=== PATIENT | female | born 1930 | race Caucasian/White ===

== ENCOUNTER 2016-12-22 11:40 | Observation (INO) | payer MEDICARE, BC ==
[2016-12-17 13:22] LABS: HEMATOCRIT 44.3 % (36.0-48.0); HEMOGLOBIN 15.2 g/dL (12.0-16.0)
[2016-12-17 13:38] LABS: CHLORIDE, SERUM 109 MMOL/L (96-112); CO2 (CARBON DIOXIDE) 27 MMOL/L (24-34); CREATININE 1.06 MG/DL (0.55-1.02); GFR AFRICAN AMERICAN 54 ML/MIN (>=60); GFR NON AFRICAN AMERICAN 47 ML/MIN (>=60); SODIUM, SERUM 144 MMOL/L (135-148)
[2016-12-17 13:41] LABS: BUN (BLOOD UREA NITROGEN) 20 MG/DL (6-23); GLUCOSE, SERUM 106 MG/DL (60-99); POTASSIUM, SERUM 5.6 MMOL/L (3.5-5.3)
--- NOTE | ~2016-12-22 | OP ---
Record Of Operation [facility] [address] [place]. [address] NAME: CORNELIO THOMPSON : [birth year] STATUS : ADM IN PAT#: [id number] AGE: 86 ADM/REG DATE : 12/22/16 MR#: [id number] REPORT SERV DATE: 12/22/16 DICTATED BY: ANNEL VILLALOBOS DATE: 12/22/16 REPORT STATUS : Draft TRANSCRIBED BY: LISA DATE: 12/22/16 DATE OF PROCEDURE: 12/22/2016 PREPROCEDURE DIAGNOSES: Rectocele with obstructive defecation. POSTPROCEDURE DIAGNOSES: Rectocele with obstructive defecation PROCEDURE: Transvaginal rectocele repair. No mesh. DAMPER MAKER: Jen. DESCRIPTION OF PROCEDURE: The patient was taken to the operating room, induced under general anesthesia, placed into lithotomy, prepped and draped in the usual sterile fashion. Local anesthetic was injected at the level of the introitus. The introitus was so small, it was impossible to place any vaginal retractor. For this reason, it was opened posteriorly through scar tissue only, there was no muscle involved in order to fit a widely renal vein retractor anteriorly over the bladder and elevate the vagina in order to perform the repair. The patient had a previous repair of episiotomy which had significant scar tissue for about 2 cm proximal in the rectum. It Looked very much like a previous rectocele repair. Dr. Perla placed her hand in an 8 glove, dipped in Betadine paint in [place] under the green sheet primary to do a rectal exam. It was noted that the rectocele she complained of was above the level of the scar tissue. The glove was discarded. Local anesthetic was injected into the posterior vaginal mucosa. Incision was made from the apex to this area of scar tissue at the posterior introitus. Great care was taken in order to try to perform dissection. The patient had significant scar tissue, was very poor quality tissue, there were not good tissue planes, great care was taken to avoid any injury to the rectum, these planes were opened as far to the apex as possible being limited by the overall aperture of the vagina. Once this was accomplished, a vagutk-aj-chius 2-0 Vicryl stitches were placed in order to bring the lateral vaginal tissue anteriorly into the wound and create a new rectovaginal septum. This was tested twice using an [address] Perla's right hand, dipped in Betadine paint. There appeared to be good thick rectovaginal septum recreated. No evidence of stitches intrarectally and it was a single-layer repair, there was no room for second layer. The vaginal mucosa was trimmed and passed off the table and sent to pathology and then the mucosa was closed in a running locking fashion from apex to introitus. The wound was irrigated. There was good hemostasis. There was minimal blood loss. The vagina was packed using Premarin soaked vaginal pack, and the patient already had a Trejo catheter in place. She was cleaned and dried followed by two 4x4s, peripad, and mesh panties. She tolerated the procedure well. GILMER/LISA Annel Villalobos M.D. Record Of Operation [address] [address] NAME: CORNELIO THOMPSON : [birth year] STATUS : ADM IN PAT#: [id number] AGE: 86 ADM/REG DATE : 12/22/16 MR#: [id number] REPORT SERV DATE: 12/22/16 DICTATED BY: ANNEL VILLALOBOS DATE: 12/22/16 REPORT STATUS : Draft TRANSCRIBED BY: LISA DATE: 12/22/16 / [id number] CC: Monse Hendricks M.D.
--- NOTE | ~2016-12-22 | CN ---
Consultation Report [facility] [address] [place]. [address] NAME: CORNELIO THOMPSON : [birth year] STATUS : ADM IN PAT#: [id number] AGE: 86 ADM/REG DATE : 12/22/16 MR#: [id number] REPORT SERV DATE: 12/23/16 DICTATED BY: SHELLI SAMAYOA DATE: 12/23/16 REPORT STATUS : Draft TRANSCRIBED BY: MODL DATE: 12/23/16 MEDICAL CONSULTATION DATE OF CONSULTATION: 12/23/2016 IDENTIFYING DATA: An 86-year-old white female, whose PCP is Dr. Derek Hatch, mechanical insulator Dr. Benedict Baca, attending physician Dr. Stefanie Villalobos, Colorectal Surgery. REASON FOR CONSULTATION: Nonsustained ventricular tachycardia. HISTORY OF PRESENT ILLNESS: This patient has a history of rectal incontinence with a rectocele and underwent surgical repair with transvaginal approach on 12/22/[address] Villalobos. This morning, about 05:15 a.m., she was noted to have a 7-beat run of nonsustained ventricular tachycardia. The patient states, she was not aware of it. No chest pain. No shortness of breath. No palpitations. Did not feel lightheaded. Review of the records from [facility] office note dated 09/30/2016 reveals that "she was noted on pacer interrogation to have nonsustained ventricular tachycardia." Because of this, Cardiology had sent the patient for an echocardiogram, this was done on 09/16/2016. Apparently, the pacer interrogation was back in 2015. On the echo 09/16/2016, left ventricular ejection fraction 55%, mild diastolic dysfunction, eiyo-vi-jcpynzxu mitral tricuspid, and aortic insufficiency along with left atrial enlargement of 4.18 cm. The patient's notes from [facility] indicate that she has been known to have these episodes in a non prolonged fashion ongoing in the past. They did not recommend any change in her therapy. The patient had again no chest pain, no shortness of breath, no palpitations, no syncope. She is not even aware of them. The shift mechanic reportedly put the patient on oxygen last night because her O2 saturation reportedly dropped to 86%. I did not see documentation of this. It was just passed on to the day nurse. The patient denies any shortness of breath. REVIEW OF SYSTEMS: She states, she had a little nausea when she had her prep for the bowel surgery. She has had occasional diarrhea in the past. She has had occasional ankle edema. She denies chest pain, shortness of breath, fever, cough, nasal congestion, sore throat, abdominal pain, vomiting, rectal bleeding, melena, dysuria, urinary hesitancy, tick bites, falls or rash. PAST MEDICAL HISTORY: She claims an allergy to codeine. She denies any history of diabetes, asthma, COPD, stroke, seizure, peptic ulcer, biliary tract disease, chronic kidney disease, kidney stones, cancer or sleep apnea. Consultation Report [address] [place]. [address] NAME: CORNELIO THOMPSON : [birth year] STATUS : ADM IN [facility]#: [id number] AGE: 86 ADM/REG DATE : 12/22/16 MR#: [id number] REPORT SERV DATE: 12/23/16 DICTATED BY: SHELLI SAMAYOA DATE: 12/23/16 REPORT STATUS : Draft TRANSCRIBED BY: LISA DATE: 12/23/16 She has had chronic atrial fibrillation with sick sinus syndrome and has a pacemaker. She has hypertension and hyperlipidemia. She has had a L2 compression fracture with osteoporosis. She also has a history of osteoarthritis. She has had headaches in the past and she had diverticulitis in 2006. She has hypothyroidism. 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 HOME MEDICATIONS: Norvasc 5 mg daily, Os-Agustín 500 mg b.i.d., levothyroxine 75 mcg daily, Toprol-XL 50 mg daily, Coumadin 5.5 mg every evening. PAST SURGICAL HISTORY: She had the rectocele repair from yesterday, appendectomy, cataract removal, foot surgery, TAHBSO, pacemaker implantation, tonsillectomy, and anoplasty, right parathyroid resection, right adrenal resection, benign breast biopsies. SOCIAL HISTORY: She has no tobacco or alcohol intake history. She has worked as a missionary. She walks without an assistive device. FAMILY HISTORY: Mother with hypertension and some type of chest cancer. Father of a heart attack at age 56. Siblings with heart disease and diabetes. DIAGNOSTIC DATA: Sodium 139, potassium 3.5, chloride 105, CO2 is 27, BUN 11, creatinine 0.8, glucose 104, calcium 7.6, magnesium 2. Troponin this morning is less than 0.02. White count is 7, hemoglobin 12, platelets are 125,000. Protime 14.6, INR 1.2. EKG done preop on 12/17/2016 at 1028 hours reveals atrial paced rhythm. Otherwise, unremarkable EKG. Telemetry strip from this morning at 0515 hours revealed atrial paced rhythm and then a 7- beat run of wide-complex tachycardia. PHYSICAL EXAMINATION: VITAL SIGNS: Temp is 97.9, pulse 70, respirations 16, blood pressure 99/53, O2 saturation is 96% on 2 L. BMI is 21.7. GENERAL: Well-developed female, who appears in no acute distress. HEENT: Head is atraumatic. Pupils are equal, round, and reactive to light. Extraocular motions are intact. No scleral icterus noted. Ears, externally unremarkable. Mildly diminished hearing bilaterally. No inflammatory changes noted externally. Nose, noninflamed externally. Septum midline. Nares patent. Mouth, moist. Good gag. No redness of the throat, gums, or lips. NECK: Supple. No lymph node or thyroid enlargement. The carotids have good pulses. No bruits. LUNGS: Clear. Good air flow. No wheezes. No rhonchi. HEART: Regular rate and rhythm without murmur, gallop, click, or rub. ABDOMEN: Bowel sounds positive. Soft, nondistended, nontender. No masses. No organomegaly. EXTREMITIES: Warm. Good pulses. No clubbing, no cyanosis, no edema. No actively inflamed skin or joints. Consultation Report [place] [id number] [facility] [place]. [address] NAME: CORNELIO THOMPSON : [birth year] STATUS : ADM IN [facility]#: [id number] AGE: 86 ADM/REG DATE : 12/22/16 MR#: [id number] REPORT SERV DATE: 12/23/16 DICTATED BY: SHELLI SAMAYOA DATE: 12/23/16 REPORT STATUS : Draft TRANSCRIBED BY: MODTyree DATE: 12/23/16 NEUROLOGIC: She is alert. She is oriented. She is cooperative. Her motor strength is 3/5 in all four extremities. No Babinski. No clonus noted. She has very poor vision in both eyes bilaterally. Cranial nerves 2 through 12 are otherwise only noted to show mild diminished hearing. No Babinski. No clonus noted. ASSESSMENT: 1. Episode of 7-beat nonsustained ventricular tachycardia, asymptomatic in a patient with this known pattern in the past with a normal ejection fraction on her echocardiogram in 08/2016, and with interrogation of her pacemaker over the phone by Cardiology within the month that was unremarkable per her report. 2. Transient mild hypoxia reported last night during sleep. This most likely represents sedation as she states she was very sleepy from the medicine she was given, less likely would be obstructive sleep apnea. 3. Chronic atrial fibrillation with pacemaker. 4. Mild intermittent thrombocytopenia. 5. Potassium level of 5. 6. Mildly low blood pressure. PLAN: 1. We will replace her potassium by mouth now. 2. Hold her Norvasc for blood pressure is low end of normal at this time until her PCP reassesses this. 3. Check room air and walking O2 saturation. 4. Okay for home with outpatient followup from the Internal Medicine perspective. RSG/JESSICAL Shelli Samayoa M.D. / [id number] CC: Monse Hendricks M.D. Mark Thel, M.D.
--- NOTE | ~2016-12-22 | HP ---
History And Physical [address] [place]. [address] NAME: CORNELIO THOMPSON : [birth year] STATUS : ADM IN [facility]#: [id number] AGE: 86 ADM/REG DATE : 12/22/16 MR#: [id number] REPORT SERV DATE: 12/22/16 DICTATED BY: ANNEL VILLALOBOS DATE: 12/22/16 REPORT STATUS : Draft TRANSCRIBED BY: LISA DATE: 12/22/16 DATE OF ADMISSION: 12/22/2016 REASON FOR ADMISSION: Transvaginal rectocele repair without mesh. PAST MEDICAL HISTORY: Fecal incontinence, lichen sclerosus, obstructive defecation, rectocele, atrial fibrillation, headaches, hyperglycemia, hypertension, hypertriglyceridemia, hypothyroidism, neck injury, and osteoarthritis. PAST SURGICAL HISTORY: Appendectomy, cataract surgery, foot surgery, hysterectomy, oophorectomy, pacemaker implant, tonsillectomy, and hemorrhoidectomy. SOCIAL HISTORY: She does not smoke or drink. She is . FAMILY HISTORY: Significant for diabetes and myocardial infarction. ALLERGIES: CODEINE. MEDICATIONS: Probiotic, Jantoven, Dilaudid, amlodipine, calcium, levothyroxine, Toprol, clonazepam. PHYSICAL EXAMINATION: VITAL SIGNS: 92, 150/87, BMI of 19. GENERAL: Alert, elderly white female, in no acute distress. HEENT: Normocephalic, atraumatic. EOMI. PERRLA. Oropharynx is clear. NECK: Supple. No lymphadenopathy. Clear to auscultation bilaterally. HEART: Regular rate and rhythm. ABDOMEN: Soft, with appropriate surgical scars. GENITALIA: Vaginal introitus is very narrowed with significant scarring posteriorly. NEUROLOGIC: Moves all extremities well. Cranial nerves 2 through 12 are intact. SKIN: No rashes. ASSESSMENT: Rectocele. PLAN: Plan is for transvaginal rectocele repair. No mesh. I have discussed risks, benefits, and alternatives. She understands and is willing to proceed. GILMER/LISA Annel Villalobos M.D. / [id number] History And Physical [address] [place]. [address] NAME: CORNELIO THOMPSON : [birth year] STATUS : ADM IN PAT#: [id number] AGE: 86 ADM/REG DATE : 12/22/16 MR#: [id number] REPORT SERV DATE: 12/22/16 DICTATED BY: ANNEL VILLALOBOS DATE: 12/22/16 REPORT STATUS : Draft TRANSCRIBED BY: LISA DATE: 12/22/16 CC: Monse Hendricks M.D.
[~2016-12-22 11:40] MED LIST: ASAB PO; B/P MED; C1 PO; C5 PO; CENTRUM TAB1 TAB PO; JANTOVEN5 MG PO; NORV5 PO; OS500+D PO; RECLAST IV; SYN075 PO; TOPXL50 PO; TRICOR145 PO
[2016-12-22 12:36] LABS: PROTIME (NOT ORD) 13.3 SEC (12.0-14.5)
[2016-12-22 12:39] LABS: BUN (BLOOD UREA NITROGEN) 13 MG/DL (6-23); CALCIUM, SERUM 8.7 MG/DL (8.5-10.4); CHLORIDE, SERUM 105 MMOL/L (96-112); CO2 (CARBON DIOXIDE) 27 MMOL/L (24-34); GFR AFRICAN AMERICAN 76 ML/MIN (>=60); GFR NON AFRICAN AMERICAN 66 ML/MIN (>=60); GLUCOSE, SERUM 93 MG/DL (60-99); POTASSIUM, SERUM 4.6 MMOL/L (3.5-5.3); SODIUM, SERUM 143 MMOL/L (135-148)
[2016-12-22 15:33] LABS: HEMOGLOBIN 13.7 g/dL (12.0-16.0)
[2016-12-23 04:20] LABS: BASOPHILS 0.1 %; BASOPHILS ABSOLUTE 0.01 10/3/uL (0.0-0.16); EOSINOPHILS 1.6 %; EOSINOPHILS ABSOLUTE 0.11 10/3/uL (0.0-0.53); HEMATOCRIT 35.3 % (36.0-48.0); IMMATURE GRANULOCYTES 0.3 %; IMMATURE GRANULOCYTES ABSOLUTE 0.02 10/3/uL (0.0-0.11); LYMPHOCYTES 8.8 %; LYMPHOCYTES ABSOLUTE 0.61 10/3/uL (0.67-4.30); MEAN CORPUSCULAR HEMOGLOB 31.8 pg (26.0-34.0); MEAN CORPUSCULAR VOLUME 93.6 fL (80-100); MEAN PLATELET VOLUME 8.6 fL (9.2-13.0); MONOCYTES 6.6 %; MONOCYTES ABSOLUTE 0.46 10/3/uL (0.21-1.20); NEUTROPHILS 82.6 %; NEUTROPHILS ABSOLUTE 5.76 10/3/uL (2.02-8.40)
[2016-12-23 04:21] LABS: INTERNATIONAL NORMAL RATI 1.2 UNITS (-); PROTIME (NOT ORD) 14.6 SEC (12.0-14.5)
[2016-12-23 04:22] LABS: MANUAL DIFF NO %; PLATELET COUNT 125 10/3/uL (150-400); RED CELL COUNT 3.77 10/6/uL (4.0-5.6)
[2016-12-23 04:33] LABS: BUN (BLOOD UREA NITROGEN) 11 MG/DL (6-23); CHLORIDE, SERUM 105 MMOL/L (96-112); CO2 (CARBON DIOXIDE) 27 MMOL/L (24-34); GFR AFRICAN AMERICAN 76 ML/MIN (>=60); GFR NON AFRICAN AMERICAN 66 ML/MIN (>=60); GLUCOSE, SERUM 104 MG/DL (60-99); SODIUM, SERUM 139 MMOL/L (135-148)
[2016-12-23 04:42] LABS: CALCIUM, SERUM 7.6 MG/DL (8.5-10.4); POTASSIUM, SERUM 3.5 MMOL/L (3.5-5.3)
[2016-12-23 06:32] LABS: TROPONIN I <0.02 NG/ML (<0.05)
[2016-12-23] MEDS ORDERED: DIL2TAB (15:32)
== END 2016-12-23 16:41 | disposition home or self-care (01) ==
LOC: SDC 11:40 → 4SO 20:10
PROVIDERS: Surgery
PROC: 0JQC3ZZ Repair Pelvic Region Subcutaneous Tissue and Fascia, Percutaneous Approach (ICD-10-PCS; principal; 2016-12-22 13:15)
DX: N81.6 Rectocele (principal); I10 Essential (primary) hypertension; E78.1 Pure hyperglyceridemia; I48.2 Chronic atrial fibrillation; I47.2 Ventricular tachycardia; R09.02 Hypoxemia; D69.6 Thrombocytopenia, unspecified; E78.00 Pure hypercholesterolemia, unspecified; M19.90 Unspecified osteoarthritis, unspecified site; E03.9 Hypothyroidism, unspecified; Z95.0 Presence of cardiac pacemaker; Z90.49 Acquired absence of other specified parts of digestive tract; Z90.710 Acquired absence of both cervix and uterus; Z90.721 Acquired absence of ovaries, unilateral; Z90.89 Acquired absence of other organs; Z88.5 Allergy status to narcotic agent; Z98.41 Cataract extraction status, right eye; Z98.42 Cataract extraction status, left eye; Z98.890 Other specified postprocedural states; Z79.899 Other long term (current) drug therapy
CPT/HCPCS: 36415; 80048; 83735; 84484; 85014; 85018; 85025; 85610; 88302; 93005; 96372; 96374; 96375; 96376; A9270-GY; C9113; G0378; J0690; J1170; J1885; J2405; J2710; J3010